=== PATIENT | male | born 1960 | race Caucasian/White ===

== ENCOUNTER 2023-05-27 16:19 | Outpatient (CLI) | payer BC, SELFPAY ==
--- NOTE | ~2023-05-27 | CT_ITS ---
EXAMINATION:CT lung screening DATE: 05/27/2023 16:34 INDICATION: Personal history of nicotine dependence. Current smoker with 41 pack year history. TECHNIQUE: Computed tomography (CT) of the chest was performed without intravenous contrast. Automate d exposure control and iterative reconstruction technique were employed. The dose-length product (DLP ) was 120.51 mGy-cm. COMPARISON: Chest CT 04/18/2018 FINDINGS: There is mild scarring at the lung apices. There is moderate emphysema. Calcified right juvenal g nodules and calcified right hilar lymph nodes are consistent with old granulomatous disease. There is pleural thickening bilaterally. There is peripheral mild rounded atelectasis bilaterally. No pleur al effusion. The heart size is normal. No pericardial effusion. 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 There is mild bilateral gynecomastia. There is mild thoracic spondylosis. There is m ild chronic anterior wedging of multiple vertebral bodies. IMPRESSION: 1. Lung-RADS category 2: Benign appearance or behavior. Continue annual screening with noncontrast lo w-dose chest CT in 12 months. Reviewed, dictated and finalized at location [facility]. IMPRESSION: 1. Lung-RADS category 2: Benign appearance or behavior. Continue annual screeni ng with noncontrast low-dose chest CT in 12 months.
== END 2023-05-27 16:20 | disposition home or self-care (01) ==
PROVIDERS: PCP Internal Medicine; Visit Provider Internal Medicine
DX: Z12.2 Encounter for screening for malignant neoplasm of respiratory organs (principal); R91.8 Other nonspecific abnormal finding of lung field; Z87.891 Personal history of nicotine dependence
CPT/HCPCS: 71271